=== PATIENT | female | born 1985 | race Caucasian/White ===

== ENCOUNTER 2020-09-28 23:28 | Emergency (ER) | payer OTHER ==
[~2020-09-28] VITALS: Ht 172.7 cm; Wt 79.4 kg
[2020-09-29] MEDS ORDERED: CLONAZEPAM 0.50.5 M1 (01:50)
[2020-09-29] MEDS ORDERED: SEROQUEL400 MG PO (01:51)
[2020-09-29] MEDS ORDERED: PRAZOSIN HCL5 MG PO (01:52)
[2020-09-29] MEDS ORDERED: BACLOFEN 10MG T10 MG (01:52)
[2020-09-29] MEDS ORDERED: NEURONTIN800 MG PO (01:53)
[2020-09-29] MEDS ORDERED: SUBOXONE 8 MG-1 EAC3 (01:54)
[2020-09-29 02:46] LABS: ABSOLUTE NEUTROPHILS 2.1 thou/uL (1.4-8.2); BASOPHILS 1.1 % (0.0-2.0); EOSINOPHILS 1.9 % (0.0-3.0); HEMATOCRIT 39.8 % (37.0-47.0); HEMOGLOBIN 13.4 gm/dL (12.0-15.0); LYMPHOCYTES 40.8 % (24.0-44.0); MCH 31.3 pg (26.0-34.0); MCHC 33.6 g/dL (28.0-37.0); MCV 93.3 fL (80.0-100.0); MONOCYTES 9.7 % (1.0-8.0); PLATELET COUNT 281 thou/uL (150-400); POLYS 46.5 % (36.0-66.0); RBC 4.26 mil/uL (4.20-5.00); RDW 13.1 % (10.5-14.5); WBC 4.5 thou/uL (4.0-11.0)
[2020-09-29 02:54] LABS: ANION GAP 10 mmol/L (7-16); BUN 8 mg/dL (7-18); CALCIUM 9.7 mg/dL (8.5-10.1); CHLORIDE 103 mmol/L (98-107); CO2 29 mmol/L (21-32); GLUCOSE 105 mg/dL (74-106); POTASSIUM 3.7 mmol/L (3.5-5.1); SODIUM 142 mmol/L (136-145)
[2020-09-29 03:02] LABS: TROPONIN-I <0.06 ng/mL (<0.06)
[2020-09-29 03:56] LABS: URINE BILIRUBIN NEGATIVE (Negative); URINE BLOOD NEGATIVE (Negative); URINE CLARITY CLEAR; URINE COLOR YELLOW; URINE GLUCOSE-RANDOM* NEGATIVE (Negative); URINE KETONES NEGATIVE (Negative); URINE LEUKOCYTES-REFLEX NEGATIVE (Negative); URINE NITRITE-REFLEX NEGATIVE (Negative); URINE PROTEIN (DIPSTICK) NEGATIVE (Negative); URINE SPECIFIC GRAVITY <= 1.005 (1.005-1.035); URINE UROBILINOGEN 0.2 E.U./dl (0.2-1.0)
[2020-09-29 04:04] LABS: AMP/METHAMP POSITIVE (Negative); BARBITURATES Negative (Negative); BENZODIAZEPINES Negative (Negative); COCAINE Negative (Negative); METHADONE Negative (Negative); OPIATES Negative (Negative); PCP Negative (Negative)
[2020-09-29 05:31] VITALS: BP 110/76
--- NOTE | 2020-09-29 07:39 | EKG ---
[facility] [place] [place] [address] ELECTROCARDIOGRAM REPORT Name: BOB REYES Room #: DEP [facility]#: [id number] Admission: 09/28/20 Attend Phys: Discharge: 09/29/20 Date of : [birth year] Report #: [id number] THIS REPORT FOR: cc: NO FAMILY PHYSICIAN or PCP NO FAMILY PHYSICIAN or PCP Ovidio Sanz MD [facility] ~ THIS REPORT FOR: //name// 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: [facility] : 1985 Requested By: Kartik Aguayo Order Number: [id number] MD: Ovidio Sanz Measurements Intervals [place] Rate: 129 P: 10 [place]: 149 QRS: -4 QRSD: 84 T: 233 QT: 360 QTc: 528 Interpretive Statements Sinus tachycardia Probable left atrial enlargement Nonspecific T abnormalities, inferior leads Prolonged QT interval No previous ECG available for comparison Electronically Signed On 09-29-2020 7:39:09 BAGGAGE HANDLING SUPERVISOR by Ovidio Sanz [email or web address] <ELECTRONICALLY SIGNED> By: Ovidio Sanz MD, FACC 09/29/20 0739 Ovidio Sanz MD, [facility] /EPI
== END 2020-09-29 05:33 | disposition home or self-care (01) ==
LOC: ER 23:28
PROVIDERS: Emergency Medicine
DX: F15.10 Other stimulant abuse, uncomplicated (principal); R07.89 Other chest pain; E86.0 Dehydration; F17.210 Nicotine dependence, cigarettes, uncomplicated; Z79.899 Other long term (current) drug therapy; Z88.1 Allergy status to other antibiotic agents

== ENCOUNTER 2020-10-07 16:18 | Emergency (ER) | payer OTHER ==
[~2020-10-07] VITALS: Ht 172.7 cm; Wt 77.1 kg
[~2020-10-07 16:18] MED LIST: BACLOFEN 10MG T10 MG; CLONAZEPAM 0.50.5 M1; NEURONTIN800 MG PO; PRAZOSIN HCL5 MG PO; SEROQUEL400 MG PO; SUBOXONE 8 MG-1 EAC3
[2020-10-07 17:12] LABS: ABSOLUTE NEUTROPHILS 6.8 thou/uL (1.4-8.2); BASOPHILS 0.3 % (0.0-2.0); EOSINOPHILS 1.3 % (0.0-3.0); HEMATOCRIT 43.8 % (37.0-47.0); HEMOGLOBIN 14.5 gm/dL (12.0-15.0); LYMPHOCYTES 16.6 % (24.0-44.0); MCH 31.2 pg (26.0-34.0); MCV 94.5 fL (80.0-100.0); MONOCYTES 8.1 % (1.0-8.0); PLATELET COUNT 306 thou/uL (150-400); POLYS 73.7 % (36.0-66.0); RBC 4.64 mil/uL (4.20-5.00); RDW 13.6 % (10.5-14.5); WBC 9.2 thou/uL (4.0-11.0)
[2020-10-07 17:20] LABS: ANION GAP 10 mmol/L (7-16); BUN 10 mg/dL (7-18); CALCIUM 9.2 mg/dL (8.5-10.1); CHLORIDE 103 mmol/L (98-107); CO2 24 mmol/L (21-32); CREATININE 0.9 mg/dL (0.6-1.0); GLUCOSE 112 mg/dL (74-106); POTASSIUM 3.9 mmol/L (3.5-5.1); SODIUM 137 mmol/L (136-145)
[2020-10-07 17:28] LABS: TROPONIN-I <0.06 ng/mL (<0.06)
[2020-10-07 18:10] LABS: URINE BILIRUBIN NEGATIVE (Negative); URINE BLOOD NEGATIVE (Negative); URINE CLARITY CLEAR; URINE COLOR YELLOW; URINE GLUCOSE-RANDOM* NEGATIVE (Negative); URINE KETONES NEGATIVE (Negative); URINE LEUKOCYTES-REFLEX NEGATIVE (Negative); URINE NITRITE-REFLEX NEGATIVE (Negative); URINE PROTEIN (DIPSTICK) NEGATIVE (Negative); URINE UROBILINOGEN 0.2 E.U./dl (0.2-1.0)
[2020-10-07 19:43] VITALS: BP 135/92
--- NOTE | 2020-10-08 07:26 | EKG ---
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 : 1985 Requested By: Leonardo Hall Order Number: [id number] MD: Ovidio Sanz Measurements Intervals [place] Rate: 136 P: 36 RI: 133 QRS: -20 QRSD: 103 T: QT: 298 QTc: 449 Interpretive Statements Sinus tachycardia Artifact in lead(s) I,aVR,aVL,V1,V2 and baseline wander in lead(s) II,III,aVR,aVF,V3 Compared to ECG 09/29/2020 00:51:45 T-wave abnormality no longer present Prolonged QT interval no longer present Electronically Signed On 10-08-2020 7:26:43 FINISH PRODUCTION MANAGER by Ovidio Sanz [email or web address] <ELECTRONICALLY SIGNED> By: Ovidio Sanz MD, FACC 10/08/20 0726 [id number] Ovidio Sanz MD, [facility] /EPI
== END 2020-10-07 19:45 | disposition home or self-care (01) ==
LOC: ER 16:18
PROVIDERS: Emergency Medicine
DX: R07.9 Chest pain, unspecified (principal); R30.0 Dysuria; J45.909 Unspecified asthma, uncomplicated; F17.210 Nicotine dependence, cigarettes, uncomplicated; Z79.899 Other long term (current) drug therapy; Z88.1 Allergy status to other antibiotic agents